=== PATIENT | male | born 1980 | race Caucasian/White ===

== ENCOUNTER 2017-12-10 01:44 | Emergency (ER) | payer OTHER ==
--- NOTE | 2017-12-10 03:16 | ED PDOC ---
Lower Extremity Pain/Injury Time Seen by Provider: 12/10/17 02:18 Chief Complaint (Nursing): Abnormal Skin Integrity Chief Complaint (Provider): right foot injury History Per: Patient History/Exam Limitations: no limitations Onset/Duration Of Symptoms: Hrs (2) Current Symptoms Are (Timing): Still Present Additional Complaint(s): 37 y/o male presents for evaluation of injury to right foot sustained 2 hours prior to arrival. Patient states he walked in to his bathroom barefoot with the light off and stepped on broken glass from the mirror. Denies numbness/ weakness right lower extremity, limitation of movement. Last Tetanus unknown. Past Medical History Reviewed: Historical Data, Nursing Documentation, Vital Signs Vital Signs: Last Vital Signs Temp 98.0 F 12/10/17 01:50 Pulse 66 12/10/17 01:50 Resp 17 12/10/17 01:50 BP 129/75 12/10/17 01:50 Pulse Ox 98 12/10/17 01:50 - Medical History PMH: No Chronic Diseases - Surgical History Surgical History: No Surg Hx - Family History Family History: States: No Known Family Hx - Living Arrangements Living Arrangements: With Family - Home Medications Home Medications: Ambulatory Orders Medication Instructions Recorded Cephalexin [Keflex] 500 mg PO Q6 #15 capsule 12/10/17 Ciprofloxacin HCl [Cipro] 500 mg PO BID #7 tab 12/10/17 - Allergies Allergies/Adverse Reactions: Allergies Allergy/AdvReac Type Severity Reaction Status Date / Time No Known Allergies Allergy Verified 12/10/17 01:57 Review of Systems ROS Statement: Except As Marked, All Systems Reviewed And Found Negative Musculoskeletal: Positive for: Foot Pain (right) Physical Exam - Reviewed Nursing Documentation Reviewed: Yes Vital Signs Reviewed: Yes - Physical Exam Appears: Positive for: Well, Non-toxic, No Acute Distress Pulses-Dorsalis Pedis (L): 2+ Pulses-Dorsalis Pedis (R): 2+ Pulses-Post. Tibialis (L): 2+ Pulses-Post. Tibialis (R): 2+ Extremity: Positive for: Normal ROM, Other (1.5cm superficial laceration medial aspect right MTP; minimal active bleeding. Puncture wound plantar aspect forefoot proximal to 2nd digit. No active bleeding, no FB noted. 1.5cm superifical laceration medial aspect right heel; no active bleeding. Distal NV/ motor intact) Neurologic/Psych: Positive for: Alert, Oriented (x3). Negative for: Motor/ Sensory Deficits - ECG O2 Sat by Pulse Oximetry: 98 - Other Rad xray right foot X-Ray: Viewed By Me X-Ray Interpretation: no acute findings - Progress ED Course And Treament: Foot wounds irrigated with 200mL NS. Dermabond, steristrips applied to medial aspect right 1st MTP laceration Dermabond applied to puncture wound Steristrips applied to medial aspect right heel laceration surgical shoe given Patient educated on findings, discharged with rx Cipro, Keflex (doses given in ED) Advised follow up PMD 2-3 days Return precautions given Disposition - Clinical Impression Clinical Impression: Foot laceration, Puncture wound of foot - Patient ED Disposition Is Patient to be Admitted: No Counseled Patient/Family Regarding: Studies Performed, Diagnosis, Need For Followup, Rx Given - Disposition Disposition: Routine/Home Disposition Time: 04:28 Condition: STABLE Prescriptions: Cephalexin [Keflex] 500 mg PO Q6 #15 capsule Ciprofloxacin HCl [Cipro] 500 mg PO BID #7 tab Instructions: Laceration Repair Forms: [facility] (Citizen [place])
[2017-12-10] MEDS: Tdap Vaccine 0.5 ml Vial (10-64 yrs) IM ONE (03:28)
[2017-12-10] MEDS ORDERED: Tdap Vaccine 0.5 ml Vial (10-64 yrs) IM ONE (03:28)
[2017-12-10 04:44] VITALS: BP 127/77; PULSE 57; RESP 18; TEMP 97.9; O2SAT 99
--- NOTE | 2017-12-10 13:33 | RAD ---
Date of service: 12/10/2017 PROCEDURE: Right Foot Radiographs. HISTORY: stepped on glass COMPARISON: None. FINDINGS: BONES: Normal. No fracture. JOINTS: Normal. SOFT TISSUES: No visulaized radiopaque/visualized foreign body. OTHER FINDINGS: None. IMPRESSION: Normal right foot radiographs.
== END 2017-12-10 04:51 | disposition home or self-care (01) ==
LOC: H.ER 01:44
DX: S91.311A Laceration without foreign body, right foot, initial encounter (principal); W25.XXXA Contact with sharp glass, initial encounter; Y92.002 Bathroom of unspecified non-institutional (private) residence as the place of occurrence of the external cause